=== PATIENT | female | born 1960 | race Caucasian/White ===

== ENCOUNTER → 2016-11-30 | Outpatient (CLI) | payer BC ==
--- NOTE | 2016-11-30 15:38 | MA ---
Screening Digital Mammogram With iCAD Analysis Clinical Indications: 56-year-old female whose sister had breast cancer at age 60, mother at age 78, and an aunt at age 70. The patient presents today for routine annual mammographic screening. Technique: Standard cephalocaudal projections are obtained. Digital breast tomosynthesis was performe d in the MLO projection with reconstruction at 1.0 mm slice thickness and composite MLO views reconst ructed. This examination is processed by the iCAD computer aided detection system. Comparison Studies: Bilateral digital screening mammography, dated October 05, 2015, August 31, August 04, 2013, July 21, 2012, June 29, 2011, and May 22, 2010. Breast Density: Type B; Scattered fibroglandular densities. Findings: CAD was reviewed. There are no new masses, suspicious calcifications, or secondary signs of malignancy seen. There has been no significant change in the appearance of either breast. A slight p arenchymal asymmetry in the lateral right breast on the craniocaudal view is reassuringly stable from multiple previous studies, and was spot-compressed on May 25, 2010. Impression: Benign mammography. BI-RADS 2. Recommendation: Routine mammographic screening in one year. [facility] will send a result letter to the patient. Negative mammography should not preclude additional workup of a clinically suspicious finding. The patient's information is entered into a reminder system with a target due date for her next mammo gram.
== END ==
LOC: FIMAGING 14:20
DX: Z12.31 Encounter for screening mammogram for malignant neoplasm of breast (principal); Z80.3 Family history of malignant neoplasm of breast
CPT/HCPCS: G0202

== ENCOUNTER → 2018-03-31 | Outpatient (CLI) | payer BC | LOC: FIMAGING 09:33 | PROVIDERS: ATTEND Physician Assistant | DX: Z12.31 Encounter for screening mammogram for malignant neoplasm of breast (principal) ==